=== PATIENT | female | born 1965 | race Caucasian/White ===

== ENCOUNTER → 2017-12-07 | Outpatient (CLI) | payer SELFPAY | END | disposition home or self-care (01) | LOC: CDC 09:12 | DX: Z01.810 Encounter for preprocedural cardiovascular examination (principal); I49.1 Atrial premature depolarization | CPT/HCPCS: 93000 ==

== ENCOUNTER 2017-12-17 07:11 | Day surgery (SDC) | payer SELFPAY ==
[~2017-12-17] VITALS: Ht 160 cm; Wt 91.6 kg
[~2017-12-17 07:11] MED LIST: ADVIL,NUPRIN,M200 MG PO; QUESTRAN PACKET4 GM PO
[2017-12-17 08:09] VITALS: BP 127/86
[2017-12-17] MEDS ORDERED: IBUPROFEN800 MG PO (10:38)
[2017-12-17] MEDS ORDERED: BACTRIM,SEPT1 TABLET PO (10:38)
[2017-12-17 11:34] LABS: BASOPHIL (%) 0.4 % (0-1); EOSINOPHIL (%) 1.5 % (0-5); EOSINOPHIL COUNT 0.1 K/uL (0-0.3); HEMATOCRIT 42.8 % (36.0-46.0); HEMOGLOBIN 13.8 G/DL (11.9-15.5); IMMATURE GRANULOCYTE (%) 0.5 % (0.0-0.7); LYMPHOCYTE (%) 17.6 % (15-42); LYMPHOCYTE COUNT 1.7 K/uL (1.0-2.8); MCH 29.4 PG (29.0-34.0); MCHC 32.2 G/DL (30.0-36.0); MCV 91.3 FL (83-99); MONOCYTE (%) 5.5 % (3-12); MONOCYTE COUNT 0.5 K/uL (0-0.8); NEUTROPHIL (%) 74.5 % (45-76); NEUTROPHIL COUNT 7.1 K/uL (1.8-6.4); PLATELET COUNT 288 K/uL (156-360); RBC DIS.WIDTH-CV 13.3 % (11.8-14.6); RBC DIS.WIDTH-SD 44.4 % (39-53); RED BLOOD COUNT 4.69 M/uL (3.80-5.20); WHITE BLOOD COUNT 9.6 K/uL (4.1-10.2)
[2017-12-17 12:15] VITALS: BP 141/65
[2017-12-17 12:55] VITALS: BP 138/71
== END 2017-12-17 13:06 | disposition home or self-care (01) ==
LOC: SDC 07:11
PROVIDERS: Obstetrics & Gynecology
PROC: 0UB98ZX Excision of Uterus, Via Natural or Artificial Opening Endoscopic, Diagnostic (ICD-10-PCS; principal; 2017-12-17)
DX: N84.0 Polyp of corpus uteri (principal); N92.0 Excessive and frequent menstruation with regular cycle; N88.2 Stricture and stenosis of cervix uteri; N83.202 Unspecified ovarian cyst, left side; K21.9 Gastro-esophageal reflux disease without esophagitis
CPT/HCPCS: 85025; 88305; J0131; J1100; J1885; J2250; J2405; J3010